=== PATIENT | female | born 1985 | race Caucasian/White ===

== ENCOUNTER 2016-08-29 20:53 | Emergency (ER) | payer OTHER ==
[~2016-08-29] VITALS: Ht 160 cm; Wt 74.8 kg
--- NOTE | 2016-08-29 21:26 | ED GI/GU/ABDOMINAL COMPLAINT ---
History of Present Illness General Chief Complaint: Abdominal Pain/Flank Pain Stated Complaint: ?FOOD POISONING Source: patient Exam Limitations: no limitations Vital Signs & Intake/Output Vital Signs & Intake/Output Vital Signs Date Time Temp Pulse Resp B/P B/P Pulse O2 O2 Flow FiO2 Mean Ox Delivery Rate 08/29 2130 Room Air 08/30 2055 98.1 147 20 138/85 98 Room Air Allergies Coded Allergies: Penicillins (ANAPHYLAXIS 08/29/16) amoxicillin (ANAPHYLAXIS 08/29/16) cefaclor (From [facility]) (ANAPHYLAXIS 08/29/16) Reconcile Medications Ciprofloxacin HCl (Cipro) 500 MG TABLET 1 TAB PO BID food poisoning Diphenoxylate HCl/Atropine (Lomotil 2.5-0.025 MG Tablet) 2.5 MG-0.025 MG TABLET 1-2 TAB PO 4 TIMES/DAY PRN nausea twenty... [id number] Metronidazole (Flagyl) 500 MG TABLET 1 TAB PO 4XDAY food poisoning Norethindrone-Ethinyl Estrad (Nortrel 1-35 28 Tablet) 1 MG-35 MCG TABLET 1 TAB PO DAILY CONTROL (Reported) Omeprazole 20 MG TABLET.DR 1 TAB PO DAILY GI (Reported) Ondansetron (Zofran Odt) 4 MG TAB.RAPDIS 1 TAB SL TID PRN nausea Triage Note: REPORTS NAUSEA VOMITING AND DIARRHEA THAT BEGAN THIS EVENING. Triage Nurses Notes Reviewed? yes ? n Is pt currently ? No Onset: Abrupt Duration: hour(s): Timing: single episode today Quality/Severity: cramping Location: generalized abdomen Radiation: no radiation Activities at Onset: none Prior Abdominal Problems: none Modifying Factors: Worsens With: defecating, vomiting. Associated Symptoms: abdominal pain, diarrhea, nausea/vomiting HPI: 31-year-old woman in prior good health presents with 4-5-hour history of nausea vomiting and diarrhea. She notes that she ate some chili at a restaurant. A few hours afterwards, she developed violent retching, vomiting with urgent loose bowel movements. She has no fever chills abdominal pain dysuria chest pain shortness of breath. Past History Travel History Traveled to [place] past 21 day No Medical History Any Pertinent Medical History? none Surgical History Surgical History: none Psychosocial History What is your primary language Mongolian Tobacco Use: Never used Family History Hx Contributory? No Review of Systems Review of Systems Constitutional: Reports: no symptoms. EENTM: Reports: no symptoms. Respiratory: Reports: no symptoms. Cardiovascular: Reports: no symptoms. GI: Reports: no symptoms. Genitourinary: Reports: no symptoms. Musculoskeletal: Reports: no symptoms. Skin: Reports: no symptoms. Neurological/Psychological: Reports: no symptoms. Hematologic/Endocrine: Reports: no symptoms. Immunologic/Allergic: Reports: no symptoms. All Other Systems: Reviewed and Negative Physical Exam Physical Exam General Appearance: well developed/nourished, mild distress Head: atraumatic, normal appearance Eyes: Bilateral: normal appearance. Ears, Nose, Throat, Mouth: hearing grossly normal Neck: normal inspection, supple, full range of motion, normal alignment Respiratory: normal breath sounds, chest non-tender, no respiratory distress, quiet respiration, lungs clear Cardiovascular: regular rate/rhythm Gastrointestinal: normal bowel sounds, soft, non-tender, no organomegaly Back: normal inspection Extremities: normal range of motion Neurologic/Psych: no motor/sensory deficits, awake, alert, oriented x 3 Skin: intact, normal color, warm/dry Core Measures ACS in differential dx? No Severe Sepsis Present: No Septic Shock Present: No Progress Differential Diagnosis: proposing versus gastroenteritis versus other Plan of Care: Orders Procedure Date/time Status LIPASE 08/29 2057 Complete HUMAN BETA HCG SCREEN 08/29 2057 Complete COMPREHENSIVE METABOLIC PANEL 08/29 2057 Complete CBC WITHOUT DIFFERENTIAL 08/29 2057 Complete AMYLASE 08/29 2057 Complete Current Medications Sig/Morgan Start time Last Medication Dose Stop Time Status Admin Ciprofloxacin 500 MG ONCE ONE 08/29 2329 UNVr (Cipro) 08/29 2330 Metronidazole 500 MG ONCE ONE 08/29 2329 UNVr (Flagyl) 08/29 2330 Laboratory Tests 08/29/162118: Anion Gap 13, Estimated GFR > 60, BUN/Creatinine Ratio 13.3, Glucose 94, Calcium 9.0, Total Bilirubin 0.5, AST 24, ALT 44, Alkaline Phosphatase 76, Total Protein 7.2, Albumin 4.5, Globulin 2.7, Albumin/Globulin Ratio 1.7, Amylase 63, Lipase 63, Total Beta HCG NEGATIVE, CBC w Diff MAN DIFF ORDERED, RBC 4.99, MCV 85.3, MCH 28.8, RDW 14.1, MPV 8.7, Gran % 89.9 H, Lymphocytes % 5.6 L, Monocytes % 4.2, Eosinophils % 0.3, Basophils % 0 L, Absolute Granulocytes 17.2 H, Segmented Neutrophils 87 H, Band Neutrophils 7 H, Absolute Lymphocytes 1.1 L, Lymphocytes 3 L, Monocytes 3, Absolute Monocytes 0.8 H, Absolute Eosinophils 0.1, Absolute Basophils 0, Platelet Estimate ADEQUATE, Normocytic RBCs VERIFIED, Normochromic RBCs VERIFIED, PUBS MCHC 33.8 Initial ED EKG: none Departure Departure Disposition: HOME OR SELF CARE Condition: Stable Clinical Impression Primary Impression: Food poisoning Secondary Impressions: Nausea vomiting and diarrhea Referrals: MARKELL PARIKH MD Departure Forms: Customer Survey General Discharge Information Prescriptions: Current Visit Scripts Ondansetron (Zofran Odt) 1 TAB SL TID PRN nausea #10 TAB Ref 1 Diphenoxylate HCl/Atropine (Lomotil 2.5-0.025 MG Tablet) 1-2 TAB PO 4 TIMES/DAY PRN nausea #20 TAB twenty... [id number] Ciprofloxacin HCl (Cipro) 1 TAB PO BID #14 TAB Metronidazole (Flagyl) 1 TAB PO 4XDAY #28 TAB Comments 08/29/2016, 2327: Patient feels well after IV fluids and supportive measures. She has tolerated fluids. She has not vomited in the ED. Her white blood cell count is elevated suggestive of a bacterial enteritis. Her abdominal exam is benign. She has no focal tenderness. I discussed this at great length with the patient. She feels comfortable going home. I will start Cipro Flagyl and sent and a prescription for her to complete 7 day course. I encouraged her to follow up if her symptoms worsen.
[2016-08-29 21:42] LABS: ABSOLUTE BASOPHIL COUNT 0 /CUMM (0.0-0.2); ABSOLUTE EOSINOPHIL COUNT 0.1 /CUMM (0.0-0.7); ABSOLUTE GRANULOCYTE CT 17.2 /CUMM (1.4-6.5); ABSOLUTE LYMPH COUNT 1.1 /CUMM (1.2-3.4); ABSOLUTE MONOCYTE COUNT 0.8 /CUMM (0.10-0.60); BASOPHIL % 0 % (0.0-2.0); EOSINOPHIL % 0.3 % (0-5); GRANULOCYTE % 89.9 % (42.2-75.2); HEMATOCRIT 42.6 % (37-47); MEAN CORPUSCULAR HGB 28.8 PG (27.0-31.0); MEAN CORPUSCULAR HGB CONC 33.8 G/DL (33.0-37.0); MEAN CORPUSCULAR VOLUME 85.3 FL (81.0-99.0); MEAN PLATELET VOLUME 8.7 FL (7.4-10.4); PLATELET COUNT 266 /CUMM (130-400); RBC DISTRIBUTION WIDTH 14.1 % (11.5-14.5); RED BLOOD CELL CT 4.99 /CUMM (4.20-5.40); WHITE BLOOD CELL COUNT 19.2 /CUMM (4.8-10.8)
[2016-08-29] MEDS ORDERED: OMEPRAZOLE20 M3 PO (21:52)
[2016-08-29] MEDS ORDERED: NORTREL 1-35 21 EACH PO (21:52)
[2016-08-29] MEDS ORDERED: ZOFRAN ODT4 M1 SL (22:03)
[2016-08-29] MEDS ORDERED: LOMOTIL 2.5-0.1 EACH PO (22:03)
[2016-08-29] MEDS ORDERED: CIPRO500 M1 PO (23:23)
[2016-08-29] MEDS ORDERED: FLAGYL500 MG PO (23:23)
[2016-08-29 23:31] VITALS: BP 137/80
== END 2016-08-29 23:41 ==
LOC: ERH 20:53
PROVIDERS: Pediatrics
DX: T62.91XA Toxic effect of unspecified noxious substance eaten as food, accidental (unintentional), initial encounter (principal)
CPT/HCPCS: 96374; J2405